=== PATIENT | male | born 1940 | race Caucasian/White ===

== ENCOUNTER 2020-03-31 09:25 | Emergency (ER) | payer MEDICARE, OTHER, SELFPAY ==
[2020-03-31 09:35] VITALS: BP 169/88; PULSE 70; RESP 18; TEMP 36.8; O2SAT 100
--- NOTE | 2020-03-31 09:55 | ED.WOUNDLAC ---
HPI - Wound/Laceration General Chief Complaint: Wound/Laceration Stated Complaint: Wasp sting Time Seen by Provider: 03/31/20 09:42 History of Present Illness HPI narrative: Stung by a wasp around 1999 last night. Hand was swollen when he went to bed. Awoke this morning with swelling going skilled nursing up the arm. He has not noticed any progression since that time. No pain, SOB, swelling of the lips,tongue, or throat. No h/o severe allergic reaction. Related Data Allergies Allergy/AdvReac Type Severity Reaction Status Date / Time sulfamethizole Allergy Unknown Unknown Verified 03/31/20 09:44 trimethoprim Allergy Unknown Unknown Verified 03/31/20 09:44 No Known Allergies Allergy Verified 03/31/20 09:44 Review of Systems Review of Systems: All systems reviewed & are unremarkable except as noted in HPI and below Constitutional: Constitutional: Denies chills and Denies fever(s) Cardiovascular: Cardiovascular: Denies chest pain Respiratory: Respiratory: Denies dyspnea Gastrointestinal: Gastrointestinal: Denies abdominal pain and Denies nausea Neurologic: Denies dizziness and Denies weakness Allergic/Immunologic: Allergic/Immunologic: Denies lip swelling, Denies throat swelling, Denies tongue swelling and Denies wheezing COUNTS INCLUDE 234 BEDS AT THE [facility] Family History Family History Father Family history of diabetes mellitus in first degree relative Mother Family history of heart disease in male family member before age 55 Social History Social History Smoking end date: 10/27/1967 Alcohol intake: current Gender identity (if verbalized by the patient): Male Exam Const: General: healthy appearing, no acute distress and alert Orientation/consciousness: patient oriented x3 HENMT: Head: normal to inspection Neck: Neck: normal visual inspection and no lymphadenopathy Chest: Chest palpation & inspection: no tenderness Resp: Effort & Inspection: normal respiratory effort Auscultation: clear to auscultation bilaterally, no rales, no rhonchi and no wheezes Cardio: Jugular venous distension: no JVD Rate: regular rate Rhythm: regular rhythm Heart sounds: no murmurs GI: Inspection: non-distended GI Palp: Yes Soft to palpation and No Tenderness to palpation present (GI) Skin: General skin exam: normal color Neuro: General: patient oriented x3 and moves all extremities Speech: normal speech Extrem: Other: swelling of left hand and forearm Psych: Appearance: well kempt Affect: normal affect Course Vital Signs Vital signs: Vital Signs Temperature 36.8 C 03/31/20 09:35 Pulse Rate 70 03/31/20 09:35 Respiratory Rate 18 03/31/20 09:35 Blood Pressure 169/88 H 03/31/20 09:35 Pulse Oximetry 100 03/31/20 09:35 Temperature 36.8 C 03/31/20 09:35 Pulse Rate 70 03/31/20 09:35 Respiratory Rate 18 03/31/20 09:35 Blood Pressure 169/88 H 03/31/20 09:35 Pulse Oximetry 100 03/31/20 09:35 Discharge Plan Discharge Clinical Impression: Allergic reaction to insect sting Qualifiers: Encounter type: initial encounter Injury intent: accidental or unintentional Qualified Code(s): T63.481A - Toxic effect of venom of other arthropod, accidental (unintentional), initial encounter Patient Disposition: Home, Self-Care Condition: Stable Instructions: Insect Bite or Sting (ED) Prescriptions: New prednisone 20 mg tablet 20 mg PO DAILY Qty: 4 RF: 0 No Action valsartan 320 mg tablet 320 mg PO DAILY Qty: 90 RF: 0 diltiazem HCl 240 mg capsule,extended release 24 hr 240 mg PO BID Qty: 180 RF: 1 pantoprazole 40 mg tablet,delayed release (DR/EC) 40 mg PO DAILY Qty: 90 RF: 0 simvastatin 20 mg tablet See Rx Instructions .ROUTE .COMPLEX Qty: 90 RF: 1 Follow-up/Referrals: Gordy Reese DO [Primary Care Provider] - Discharge Date/Time: 03/31/20 10:21
[2020-03-31] MEDS: predniSONE 20 MG TABLET PO (10:14)
== END 2020-03-31 10:21 | disposition home or self-care (01) ==
PROVIDERS: Emergency Provider Emergency Medicine; PCP Internal Medicine
DX: T63.461A Toxic effect of venom of wasps, accidental (unintentional), initial encounter (principal)
CPT/HCPCS: 99283; J7512

== ENCOUNTER 2020-10-09 10:21 | Outpatient (RCR) | payer MEDICARE, OTHER, SELFPAY ==
[2020-08-04 11:55] LABS: Basophils Absolute Auto 0.1 K/mm3 (0.0-0.1); Basophils Percent Auto 1.8 % (0.2-1.2); Eosinophils Absolute Auto 0.1 K/mm3 (0-0.3); Eosinophils Percent Auto 3.2 % (0-4.4); Hematocrit 35.4 % (42.0-52.0); Hemoglobin 12.3 g/dL (14.0-18.0); Immature Granulocyte Absolute 0.01 K/mm3 (0.00-0.031); Immature Granulocyte Percent A 0.4 % (0-0.5); Lymphocytes Absolute Auto 0.94 K/mm3 (0.9-3.2); Lymphocytes Percent Auto 33.3 % (18.3-44.2); Mean Corpuscular HGB Conc 34.7 g/dl (32-36); Mean Corpuscular Hemoglobin 41.1 pg (26-34); Mean Corpuscular Volume 118.4 fl (80-100); Mean Platelet Volume 9.5 fl (7.4-10.4); Monocytes Absolute Auto 0.2 K/mm3 (0.1-0.6); Neutrophils Absolute Auto 1.6 K/mm3 (1.3-6.7); Neutrophils Percent Auto 55.3 % (45.5-73.1); Platelet Count Result 500 k/mm3 (150-375); Red Blood Count 2.99 M/mm3 (4.6-6.20); Red Cell Distribution Width 17.4 % (11.5-14.5); White Blood Count 2.8 K/mm3 (4.5-10.0)
[2020-09-14 13:24] LABS: Basophils Percent Auto 1.1 % (0.2-1.2); Eosinophils Percent Auto 1.1 % (0-4.4); Hematocrit 25.8 % (42.0-52.0); Hemoglobin 9.1 g/dL (14.0-18.0); Immature Granulocyte Absolute 0.01 K/mm3 (0.00-0.031); Immature Granulocyte Percent A 0.6 % (0-0.5); Lymphocytes Absolute Auto 0.85 K/mm3 (0.9-3.2); Lymphocytes Percent Auto 47.5 % (18.3-44.2); Mean Corpuscular HGB Conc 35.3 g/dl (32-36); Mean Corpuscular Hemoglobin 45.7 pg (26-34); Mean Corpuscular Volume 129.6 fl (80-100); Mean Platelet Volume 9.2 fl (7.4-10.4); Monocytes Absolute Auto 0.2 K/mm3 (0.1-0.6); Monocytes Percent Auto 13.4 % (2.6-8.5); Neutrophils Absolute Auto 0.7 K/mm3 (1.3-6.7); Neutrophils Percent Auto 36.3 % (45.5-73.1); Platelet Count Result 366 k/mm3 (150-375); Red Blood Count 1.99 M/mm3 (4.6-6.20); Red Cell Distribution Width 19.8 % (11.5-14.5)
[2020-09-14 13:33] LABS: White Blood Count 1.8 K/mm3 (4.5-10.0)
== END 2020-11-02 23:59 | disposition home or self-care (01) ==
LOC: ANHLAB 10:21
PROVIDERS: PCP Internal Medicine; Visit Provider Internal Medicine Medical Oncology
DX: D45 Polycythemia vera (principal)
CPT/HCPCS: 36415; 85025

== ENCOUNTER 2020-10-09 10:22 | Outpatient (CLI) | payer MEDICARE, OTHER, SELFPAY ==
[2020-10-09 10:55] LABS: Basophils Percent Auto 1.2 % (0.2-1.2); Eosinophils Absolute Auto 0.1 K/mm3 (0-0.3); Eosinophils Percent Auto 3.1 % (0-4.4); Hematocrit 24.5 % (42.0-52.0); Hemoglobin 8.3 g/dL (14.0-18.0); Lymphocytes Absolute Auto 0.85 K/mm3 (0.9-3.2); Lymphocytes Percent Auto 33.2 % (18.3-44.2); Mean Corpuscular HGB Conc 33.9 g/dl (32-36); Mean Corpuscular Hemoglobin 48.3 pg (26-34); Mean Corpuscular Volume 142.4 fl (80-100); Mean Platelet Volume 9.9 fl (7.4-10.4); Monocytes Absolute Auto 0.2 K/mm3 (0.1-0.6); Monocytes Percent Auto 7.4 % (2.6-8.5); Neutrophils Absolute Auto 1.4 K/mm3 (1.3-6.7); Neutrophils Percent Auto 55.1 % (45.5-73.1); Platelet Count Result 354 k/mm3 (150-375); Red Blood Count 1.72 M/mm3 (4.6-6.20); Red Cell Distribution Width 20.1 % (11.5-14.5); White Blood Count 2.6 K/mm3 (4.5-10.0)
[2020-10-09 11:08] LABS: Alanine Aminotransferase 20 U/L (4-50); Albumin Level 3.7 g/dL (3.5-5.1); Alkaline Phosphatase 53 U/L (38-126); Anion Gap 6 mmol/L (8-16); Aspartate Amino Transferase 30 U/L (17-59); Bilirubin,Total 0.8 mg/dL (0.2-1.3); Blood Urea Nitrogen 17 mg/dL (9-20); Calcium 8.2 mg/dL (8.4-10.2); Carbon Dioxide 27 mmol/L (22-30); Chloride 106 mmol/L (98-107); Cholesterol 96 mg/dL (0-200); Estimated Glomerular Filt Rate > 60; Glucose 99 mg/dL (75-110); HDL Direct 34 mg/dL; Potassium 3.8 mmol/L (3.4-5.0); Sodium 139 mmol/L (137-145); Triglycerides 98 mg/dL (<150)
[2020-10-09 11:19] LABS: LDL Cholesterol Direct 35 mg/dL
== END 2020-10-09 10:23 | disposition home or self-care (01) ==
LOC: ANHLAB 10:29
PROVIDERS: PCP Internal Medicine; Visit Provider Nurse Practitioner
DX: E78.2 Mixed hyperlipidemia (principal); D75.1 Secondary polycythemia
CPT/HCPCS: 36415; 80053; 80061; 85025

== ENCOUNTER 2021-08-02 10:25 | Outpatient (CLI) | payer MEDICARE, OTHER, SELFPAY ==
--- NOTE | ~2021-08-02 | US_ITS ---
EXAMINATION: US venous doppler [facility] DATE: 08/02/2021 11:31 INDICATION: Left lower limb swelling TECHNIQUE: Grayscale ultrasound images without and with compression and Doppler ultrasound images of the left lower extremity veins were obtained. COMPARISON: None. FINDINGS: The visualized portions of left common femoral vein, profunda (deep) femoral vein, femoral vein, popl iteal vein, peroneal veins, posterior tibial veins, gastrocnemius vein and greater saphenous vein out flow are patent. IMPRESSION: 1. No deep venous thrombosis in the left lower limb. Reviewed, dictated and finalized at location B.
[2021-08-02 11:15] LABS: Anion Gap 9 mmol/L (8-16); Blood Urea Nitrogen 15 mg/dL (9-20); Calcium 8.3 mg/dL (8.4-10.2); Carbon Dioxide 25 mmol/L (22-30); Chloride 108 mmol/L (98-107); Estimated Glomerular Filt Rate > 60; Glucose 92 mg/dL (65-110); Potassium 4.1 mmol/L (3.4-5.0); Sodium 142 mmol/L (137-145)
== END 2021-08-02 10:26 | disposition home or self-care (01) ==
PROVIDERS: PCP Internal Medicine; Visit Provider Nurse Practitioner
DX: R60.9 Edema, unspecified (principal)
CPT/HCPCS: 36415; 80048; 93971

== ENCOUNTER 2021-10-24 07:36 | Outpatient (RCR) | payer MEDICARE, OTHER, SELFPAY ==
[2021-08-22 13:04] VITALS: BMI 23.7
--- NOTE | 2021-11-14 12:22 | PCWOUND ---
[facility] NOTE Patient did not show up for his appointment, no call was made to cancel.
== END 2021-11-20 23:59 | disposition home or self-care (01) ==
LOC: ANHWOC 07:36
PROVIDERS: PCP Internal Medicine; Visit Provider Nurse Practitioner
DX: L98.9 Disorder of the skin and subcutaneous tissue, unspecified (principal)
CPT/HCPCS: 99212; 99213; G0463